=== PATIENT | female | born 1955 | race Caucasian/White ===

== ENCOUNTER 2017-06-17 05:34 | Inpatient (IN) | payer BC ==
[~2017-06-17] VITALS: Ht 165.1 cm; Wt 100.2 kg
[~2017-06-17 05:34] MED LIST: PROAIR HFA8.5 GM IH; SIMVASTATIN5 MG PO; SYNTHROID100 MCG PO; SYNTHROID125 MCG PO
[2017-06-17 06:46] LABS: HEMATOCRIT 43.4 % (36.0-46.0); HEMOGLOBIN 14.4 G/DL (11.9-15.5); MCHC 33.2 G/DL (30.0-36.0); MCV 87.3 FL (83-99); PLATELET COUNT 264 K/uL (156-360); RBC DIS.WIDTH-CV 13.7 % (11.8-14.6); RBC DIS.WIDTH-SD 44.1 % (39-53); RED BLOOD COUNT 4.97 M/uL (3.80-5.20); WHITE BLOOD COUNT 15.6 K/uL (4.1-10.2)
[2017-06-17 06:56] LABS: CHLORIDE 99 mEq/L (99-109); POTASSIUM 3.7 mEq/L (3.7-5.4); SODIUM 134 mEq/L (136-147)
[2017-06-17 06:57] LABS: GLUCOSE 122 mg/dL (70-99)
[2017-06-17 07:01] LABS: CREATININE 0.9 mg/dL (0.6-1.3); GFR ESTIMATE (CALCULATED) > 59 mL/min/
[2017-06-17 07:02] LABS: UREA NITROGEN (BUN) 19 mg/dL (9-23)
[2017-06-17 07:06] LABS: TROP-I INTERPRETATION NEGATIVE; TROPONIN-I 0.01 ng/mL (0.0-0.30)
[2017-06-17] MEDS ORDERED: CRESTOR20 MG PO (17:14)
[2017-06-17] MEDS ORDERED: ADVAIR 500/501 DISK IH (17:15)
[2017-06-17] MEDS ORDERED: NIGHT TIME COL1 EAC1 PO (17:15)
[2017-06-17 17:49] VITALS: BP 107/58
[2017-06-17 21:27] VITALS: BP 116/59
[2017-06-17 23:12] VITALS: BP 94/51
[2017-06-18 04:24] VITALS: BP 113/65
[2017-06-18 06:32] LABS: BASOPHIL (%) 0 % (0-1); EOSINOPHIL (%) 0 % (0-5); HEMATOCRIT 36.6 % (36.0-46.0); IMMATURE GRANULOCYTE (%) 0.6 % (0.0-0.7); LYMPHOCYTE (%) 7.5 % (15-42); LYMPHOCYTE COUNT 0.8 K/uL (1.0-2.8); MCH 28.8 PG (29.0-34.0); MCHC 32.5 G/DL (30.0-36.0); MCV 88.6 FL (83-99); MONOCYTE COUNT 0.4 K/uL (0-0.8); NEUTROPHIL (%) 87.9 % (45-76); NEUTROPHIL COUNT 9.7 K/uL (1.8-6.4); PLATELET COUNT 224 K/uL (156-360); RBC DIS.WIDTH-CV 13.5 % (11.8-14.6); RED BLOOD COUNT 4.13 M/uL (3.80-5.20)
[2017-06-18 06:33] LABS: HEMOGLOBIN 11.9 G/DL (11.9-15.5)
[2017-06-18 07:06] LABS: CHLORIDE 103 MEQ/L (99-109); CREATININE 0.7 MG/DL (0.6-1.3); GFR ESTIMATE (CALCULATED) > 59 mL/min/; GLUCOSE 168 mg/dL (70-99); SODIUM 135 MEQ/L (136-147); UREA NITROGEN (BUN) 16 mg/dL (9-23)
[2017-06-18 08:00] VITALS: BP 98/50
[2017-06-18 11:30] VITALS: BP 100/52
[2017-06-18 16:50] VITALS: BP 115/56
[2017-06-18 21:15] VITALS: BP 119/58
[2017-06-18 23:13] VITALS: BP 113/56
[2017-06-19 05:16] VITALS: BP 120/64
[2017-06-19 08:50] VITALS: BP 128/61
[2017-06-19 12:44] VITALS: BP 119/62
[2017-06-19 18:43] VITALS: BP 122/58
[2017-06-19 19:12] VITALS: BP 133/71
[2017-06-19 23:23] VITALS: BP 122/56
[2017-06-20] VITALS (17 sets, daily range): BP systolic 90–149; BP diastolic 48–84
[2017-06-20 05:57] LABS: HEMATOCRIT 36.1 % (36.0-46.0); HEMOGLOBIN 11.5 G/DL (11.9-15.5); MCH 28.8 PG (29.0-34.0); MCHC 31.9 G/DL (30.0-36.0); MCV 90.3 FL (83-99); RBC DIS.WIDTH-CV 13.7 % (11.8-14.6); RBC DIS.WIDTH-SD 45.2 % (39-53); WHITE BLOOD COUNT 13.1 K/uL (4.1-10.2)
[2017-06-20 06:28] LABS: PLATELET COUNT 340 K/uL (156-360)
[2017-06-20 06:33] LABS: CHLORIDE 106 MEQ/L (99-109); GFR ESTIMATE (CALCULATED) > 59 mL/min/; GLUCOSE 168 mg/dL (70-99); POTASSIUM 4.4 MEQ/L (3.7-5.4); SODIUM 141 MEQ/L (136-147); UREA NITROGEN (BUN) 16 mg/dL (9-23)
[2017-06-20 08:07] LABS: TROP-I INTERPRETATION NEGATIVE; TROPONIN-I 0.07 ng/mL (0.0-0.30)
[2017-06-20 14:04] LABS: TROP-I INTERPRETATION NEGATIVE; TROPONIN-I 0.03 ng/mL (0.0-0.30)
[2017-06-20 19:51] LABS: TROP-I INTERPRETATION NEGATIVE; TROPONIN-I 0.04 ng/mL (0.0-0.30)
[2017-06-21] VITALS (11 sets, daily range): BP systolic 120–170; BP diastolic 58–80
[2017-06-21 01:04] LABS: TROP-I INTERPRETATION NEGATIVE; TROPONIN-I 0.03 ng/mL (0.0-0.30)
[2017-06-21 06:34] LABS: TROP-I INTERPRETATION NEGATIVE; TROPONIN-I 0.02 ng/mL (0.0-0.30)
[2017-06-22 03:49] VITALS: BP 123/67
[2017-06-22 09:00] VITALS: BP 128/68
[2017-06-22 12:00] VITALS: BP 134/67
[2017-06-22 15:00] VITALS: BP 156/85
[2017-06-22 20:40] VITALS: BP 144/70
[2017-06-23 00:36] VITALS: BP 132/82
[2017-06-23 03:45] VITALS: BP 132/65
[2017-06-23 08:03] VITALS: BP 128/89
[2017-06-23 12:04] VITALS: BP 137/68
[2017-06-23 16:38] VITALS: BP 119/63
[2017-06-23 20:45] VITALS: BP 133/70
[2017-06-24 00:40] VITALS: BP 135/70
[2017-06-24 02:08] VITALS: BP 143/72
[2017-06-24 07:00] LABS: BASOPHIL (%) 0.3 % (0-1); EOSINOPHIL (%) 0.6 % (0-5); EOSINOPHIL COUNT 0.1 K/uL (0-0.3); HEMATOCRIT 39.9 % (36.0-46.0); HEMOGLOBIN 12.5 G/DL (11.9-15.5); IMMATURE GRANULOCYTE (%) 4.1 % (0.0-0.7); LYMPHOCYTE COUNT 3.4 K/uL (1.0-2.8); MCH 27.9 PG (29.0-34.0); MCHC 31.3 G/DL (30.0-36.0); MCV 89.1 FL (83-99); MONOCYTE (%) 7.1 % (3-12); NEUTROPHIL (%) 63.9 % (45-76); NEUTROPHIL COUNT 9.1 K/uL (1.8-6.4); PLATELET COUNT 385 K/uL (156-360); RBC DIS.WIDTH-SD 42.6 % (39-53); RED BLOOD COUNT 4.48 M/uL (3.80-5.20); WHITE BLOOD COUNT 14.2 K/uL (4.1-10.2)
[2017-06-24 07:34] LABS: ALBUMIN 2.9 G/DL (3.2-4.8); ALKALINE PHOSPHATASE 40 IU/L (3-129); ALT (GPT) 38 IU/L (3-49); AST (GOT) 28 IU/L (2-34); CHLORIDE 100 MEQ/L (99-109); CREATININE 0.9 MG/DL (0.6-1.3); GFR ESTIMATE (CALCULATED) > 59 mL/min/; GLUCOSE 89 mg/dL (70-99); SODIUM 143 MEQ/L (136-147); TOTAL BILIRUBIN 0.4 MG/DL (0.0-1.0); TOTAL PROTEIN 5.4 G/DL (6.4-8.3); UREA NITROGEN (BUN) 10 mg/dL (9-23)
[2017-06-24 07:39] VITALS: BP 132/68
[2017-06-24] MEDS ORDERED: SPIRIVA RESPIMAT4 GM IH (09:19)
[2017-06-24] MEDS ORDERED: NICOTINE PATCH1 EAC2 TD (09:19)
[2017-06-24] MEDS ORDERED: DOXYCYCLINE HY100 M3 PO (09:19)
[2017-06-24] MEDS ORDERED: PREDNISONE10 MG PO (09:19)
[2017-06-24 10:01] LABS: HEMOGLOBIN A1c (GLYCOHEMOGLOB) 6.7 % (Below 5.7)
== END 2017-06-24 12:14 | disposition home or self-care (01) | DRG 189 ==
LOC: EME 05:34 → EDOF 10:52 → 4EAST 10:52 → 4WEST 10:52 → ENRESERV 10:57 → EDOF 11:13 → ENRESERV 11:54 → CANRESERV 12:52 → ENRESERV 12:52 → EDOF 13:35 → ENRESERV 13:38 → CANRESERV 13:38 → ENRESERV 13:39 → 4EAST 17:25 → ENRESERV 06-19 16:23 → 3EAST 06-19 18:09 → ENRESERV 06-20 07:34 → 4WEST 06-20 07:46 → CANRESERV 06-20 08:09 → ENRESERV 06-20 08:09 → 4WEST 06-20 13:18 → ENRESERV 06-21 10:01 → 4EAST 06-21 13:04 → ENRESERV 06-24 00:40 → 5SOUTH 06-24 02:00
PROVIDERS: Emergency Medicine; Hospitalist; Internal Medicine
DX: J96.01 Acute respiratory failure with hypoxia (principal); J15.9 Unspecified bacterial pneumonia; J44.1 Chronic obstructive pulmonary disease with (acute) exacerbation; J09.X1 Influenza due to identified novel influenza A virus with pneumonia; E87.1 Hypo-osmolality and hyponatremia; Z90.2 Acquired absence of lung [part of]; J44.0 Chronic obstructive pulmonary disease with (acute) lower respiratory infection; I48.0 Paroxysmal atrial fibrillation; R00.0 Tachycardia, unspecified; F17.200 Nicotine dependence, unspecified, uncomplicated; E03.9 Hypothyroidism, unspecified; E78.5 Hyperlipidemia, unspecified; Z85.118 Personal history of other malignant neoplasm of bronchus and lung; Z71.6 Tobacco abuse counseling; Z79.01 Long term (current) use of anticoagulants; F41.9 Anxiety disorder, unspecified; R79.1 Abnormal coagulation profile; Z68.37 Body mass index [BMI] 37.0-37.9, adult
CPT/HCPCS: 71045; 71046; 71275; 80048; 80053; 80202; 82948; 83036; 83605; 84443; 84484; 85025; 85027; 85379; 87040; 87070; 87205; 87449; 87502; 87641; 93005; 93306; 94640; 94640 76; 94760; 94799; 99281; 99285; J1160; J1650; J1815; J1940; J1956; J2543; J2920; J3370; J7030; J7050; J7512